=== PATIENT | male | born 1955 | race Two or more races ===

== ENCOUNTER → 2022-09-23 | Outpatient (CLI) | payer OTHER, MEDICARE ==
[2022-09-23 10:44] LABS: Basophils # (auto) 0.1 10 ^3/uL (0-0.2); Basophils % (auto) 1.5 % (0.0-2.0); Eosinophils # (auto) 0.2 10 ^3/uL (0-0.8); Eosinophils % (auto) 3.7 % (0.0-7.0); Hematocrit 44.3 % (41.0-53.0); Lymphocytes # (auto) 1.3 10 ^3/uL (0.4-5.4); Lymphocytes % (auto) 22.9 % (10.0-50.0); Mean Corpuscular Hgb Conc. 33.9 g/dL (32.0-36.0); Mean Corpuscular Volume 97.4 fL (80.0-100.0); Monocytes # (auto) 0.4 10 ^3/uL (0-1.3); Monocytes % (auto) 7.1 % (0.0-12.0); Neutrophils # (auto) 3.6 10 ^3/uL (1.6-8.6); Neutrophils % (auto) 64.8 % (37.0-80.0); Nucleated Red Blood Cells % 0.1 %; Red Blood Cells 4.55 10^6/uL (4.5-5.90); Red Cell Distribution Width 13.1 % (11.8-14.3); White Blood Cell 5.6 10^3/uL (4.4-10.8)
[2022-09-23 11:00] LABS: Urine Bacteria NONE SEEN /hpf (None Seen); Urine Blood Negative /uL (Negative); Urine Specific Gravity 1.018 (1.001-1.035); Urine WBC 1 /hpf (0 - 3)
[2022-09-23 11:39] LABS: Prostate Specific Antigen 0.28 ng/mL (0.0-4.0)
[2022-09-23 12:15] LABS: Albumin 3.7 g/dL (3.4-5.0); BUN/Creatinine Ratio 17.4; Calcium 8.7 mg/dL (8.5-10.1); Magnesium 2.4 mg/dL (1.6-2.6); Potassium 4.2 mmol/L (3.5-5.1); Uric Acid 6.1 mg/dL (3.5-7.2)
[2022-09-23 12:19] LABS: Bilirubin, Total 0.4 mg/dL (0.2-1.0); CRP High Sensitivity 0.04 mg/dL (< 0.3); Total Protein 6.8 g/dL (6.4-8.2)
== END | disposition home or self-care (01) ==
LOC: LAB 10:28
PROVIDERS: ATTEND Nurse Practitioner Family
DX: E61.2 Magnesium deficiency (principal); R78.89 Finding of other specified substances, not normally found in blood; R68.89 Other general symptoms and signs; R73.09 Other abnormal glucose; R82.79 Other abnormal findings on microbiological examination of urine; D51.9 Vitamin B12 deficiency anemia, unspecified; R82.90 Unspecified abnormal findings in urine; E55.9 Vitamin D deficiency, unspecified; E79.0 Hyperuricemia without signs of inflammatory arthritis and tophaceous disease; R94.6 Abnormal results of thyroid function studies
CPT/HCPCS: 36415; 80053; 80061; 81001; 82306; 82607; 83036; 83735; 83880; 84153; 84443; 84550; 85025; 86141

== ENCOUNTER 2022-09-26 10:12 | Emergency (ER) | payer OTHER, MEDICARE ==
[~2022-09-26] VITALS: Ht 154.9 cm; Wt 73.9 kg
[2022-09-26 10:14] VITALS: BP 186/92
[2022-09-26] MEDS ORDERED: SODIUM CHLORIDE 0.9% 1,000 ML IVB ONE (10:30)
[2022-09-26 10:58] LABS: Basophils # (auto) 0.1 10 ^3/uL (0-0.2); Eosinophils # (auto) 0.2 10 ^3/uL (0-0.8); Eosinophils % (auto) 3.2 % (0.0-7.0); Hematocrit 50.2 % (41.0-53.0); Hemoglobin 16.7 g/dL (13.5-17.5); Lymphocytes # (auto) 1.5 10 ^3/uL (0.4-5.4); Mean Corpuscular Hemoglobin 32.8 pg (28.0-32.0); Mean Corpuscular Hgb Conc. 33.3 g/dL (32.0-36.0); Mean Corpuscular Volume 98.5 fL (80.0-100.0); Monocytes # (auto) 0.5 10 ^3/uL (0-1.3); Monocytes % (auto) 6.4 % (0.0-12.0); Neutrophils # (auto) 4.8 10 ^3/uL (1.6-8.6); Neutrophils % (auto) 68.4 % (37.0-80.0); Nucleated Red Blood Cells % 0.1 %; Red Blood Cells 5.09 10^6/uL (4.5-5.90); Red Cell Distribution Width 13.3 % (11.8-14.3); White Blood Cell 7.1 10^3/uL (4.4-10.8)
[2022-09-26 11:12] LABS: Albumin 4.2 g/dL (3.4-5.0); Calcium 9.2 mg/dL (8.5-10.1); Potassium 4.2 mmol/L (3.5-5.1)
[2022-09-26 11:15] LABS: BUN/Creatinine Ratio 19.8; Bilirubin, Total 0.8 mg/dL (0.2-1.0); Total Protein 7.7 g/dL (6.4-8.2)
[2022-09-26 11:26] LABS: Urine Bacteria NONE SEEN /hpf (None Seen); Urine Blood Negative /uL (Negative); Urine WBC 1 /hpf (0 - 3)
[2022-09-26] MEDS ORDERED: ACETAMINOPHEN 325 MG TAB PO ONE (11:45)
== END 2022-09-26 12:13 | disposition home or self-care (01) ==
LOC: ER 10:12
DX: R42 Dizziness and giddiness (principal); R51.9 Headache, unspecified; I10 Essential (primary) hypertension; F12.90 Cannabis use, unspecified, uncomplicated; Z86.73 Personal history of transient ischemic attack (TIA), and cerebral infarction without residual deficits
CPT/HCPCS: 36415; 70450; 80053; 81001; 85025; 93005; 96360; 99285; J7030

== ENCOUNTER → 2022-12-30 | Outpatient (CLI) | payer OTHER, MEDICAID | END | disposition home or self-care (01) | LOC: XYW 08:03 | PROVIDERS: ATTEND Internal Medicine | DX: R06.02 Shortness of breath (principal) | CPT/HCPCS: 93306 ==

== ENCOUNTER 2023-02-11 00:58 | Emergency (ER) | payer OTHER, MEDICAID ==
[~2023-02-11] VITALS: Ht 177.8 cm; Wt 79.5 kg
[2023-02-11 01:21] VITALS: BP 165/104; PULSE 69; RESP 18; O2SAT 97
== END 2023-02-11 06:17 | disposition left against medical advice (07) ==
LOC: ER 00:58
DX: S01.81XA Laceration without foreign body of other part of head, initial encounter (principal); I10 Essential (primary) hypertension; F15.90 Other stimulant use, unspecified, uncomplicated; Z86.73 Personal history of transient ischemic attack (TIA), and cerebral infarction without residual deficits; Y08.89XA Assault by other specified means, initial encounter; Y93.89 Activity, other specified; Y92.511 Restaurant or cafe as the place of occurrence of the external cause; Y99.8 Other external cause status
CPT/HCPCS: 70450; 71250; 72125; 74176

== ENCOUNTER → 2023-02-25 | Outpatient (CLI) | payer OTHER, MEDICAID | END | disposition home or self-care (01) | LOC: LAB 14:30 | PROVIDERS: ATTEND Family Medicine | DX: D22.9 Melanocytic nevi, unspecified (principal); D48.5 Neoplasm of uncertain behavior of skin | CPT/HCPCS: 88302 ==

== ENCOUNTER 2023-06-29 16:21 | Emergency (ER) | payer MEDICAID, OTHER ==
[~2023-06-29] VITALS: Ht 177.8 cm; Wt 75.8 kg
[2023-06-29 16:53] VITALS: BP 155/85; PULSE 70; RESP 18; O2SAT 99
== END 2023-06-29 19:58 | disposition left against medical advice (07) ==
LOC: ER 16:21
DX: H57.11 Ocular pain, right eye (principal); Z53.21 Procedure and treatment not carried out due to patient leaving prior to being seen by health care provider